=== PATIENT | male | born 1980 | race Caucasian/White ===

== ENCOUNTER 2023-09-21 10:24 | Outpatient (CLI) | payer OTHER, SELFPAY | END 2023-09-21 10:25 | disposition home or self-care (01) | PROVIDERS: Visit Provider Nurse Practitioner | DX: G47.33 Obstructive sleep apnea (adult) (pediatric) (principal) | CPT/HCPCS: G0399 ==

== ENCOUNTER 2024-01-04 20:00 | Outpatient (CLI) | payer OTHER, SELFPAY | END 2024-01-04 20:01 | disposition home or self-care (01) | LOC: SLEEP 22:41 | PROVIDERS: Visit Provider Nurse Practitioner | DX: G47.33 Obstructive sleep apnea (adult) (pediatric) (principal); Z99.89 Dependence on other enabling machines and devices | CPT/HCPCS: 95811 ==

== ENCOUNTER 2025-01-17 07:05 | Outpatient (CLI) | payer OTHER, SELFPAY | END 2025-01-17 07:06 | disposition home or self-care (01) | LOC: RT 07:09 | PROVIDERS: PCP Nurse Practitioner; Visit Provider Nurse Practitioner | DX: J45.909 Unspecified asthma, uncomplicated (principal) | CPT/HCPCS: 94010; 94729 ==